=== PATIENT | female | born 1975 | race Caucasian/White ===

== ENCOUNTER 2017-02-16 08:41 | Emergency (ER) | payer BC ==
[2017-02-16 10:04] LABS: BASOPHIL# 0.2 X 10^3uL (0.0-0.1); BASOPHILS 2.3 % (0.0-2.0); EOSINOPHILS 1.3 % (0.0-6.0); EOSINOPHILS# 0.1 X 10^3uL (0.0-0.4); LYMPHOCYTES 10.7 % (20.0-40.0); LYMPHOCYTES# 0.9 X 10^3uL (0.8-3.8); MEAN CORPUS. HGB CONCENTRATION 34.2 g/dL (32.0-36.0); MEAN CORPUSCULAR HEMOGLOBIN 30.7 pg (29.0-35.0); MEAN PLATELET VOLUME 7.7 fL (7.4-10.4); MONOCYTES 9.3 % (2.0-10.0); MONOCYTES# 0.7 X 10^3uL (0.2-1.0); NEUTROPHILS# 6.1 X 10^3uL (2.6-6.7); PLATELET COUNT 189 X 10^3uL (130-440); RED BLOOD COUNT 4.89 X 10^6uL (4.20-6.10); RED CELL DISTRIBUTION WIDTH 12.2 % (11.5-14.5)
[2017-02-16] MEDS ORDERED: DEXAMETHASONE 10 MG/ML VIAL ONE (10:09)
[2017-02-16 10:10] LABS: BLOOD UREA NITROGEN 7 mg/dL (7-17); CALCIUM 9.1 mg/dL (8.4-10.2); CHLORIDE 107 mmol/L (98-107); EST GLOMERULAR FILTRATION RATE > 60 mL/min; GLUCOSE 83 mg/dL (70-100); POTASSIUM 4.1 mmol/L (3.5-5.1); SODIUM 140 mmol/L (137-145)
[2017-02-16 10:21] LABS: NEUTROPHILS 76.4 % (54.0-75.0)
--- NOTE | 2017-02-16 10:48 | CT REPORT ---
HISTORY: Difficulty swallowing, congestion. COMPARISON: None TECHNIQUE: This examination was performed using automated exposure control, adjustment of mA or kV according to patient size, and/or use of iterative reconstruction technique. Contrast enhanced axial CT images of the neck were acquired following the intravenous administration of IV contrast. Coronal and sagittal reconstructions were performed. 100 cc Isovue-300 FINDINGS: Aerodigestive tract: Subtle submucosal edema involving the bilateral aryepiglottic folds, more conspi cuous on the left with associated mucosal hyperenhancement. The upper aerodigestive tract is not sign ificantly narrowed. Major salivary glands: The parotid glands and submandibular glands are unremarkable. Thyroid gland: The thyroid gland is normal in CT appearance. Lymph nodes: No cervical chain adenopathy. Orbits: The visualized orbits and globes are unremarkable. Visualized brain and intracranial contents: The visualized intracranial contents are unremarkable. Paranasal sinuses: Minor mucosal thickening along the floor of the right maxillary sinus. Visualized osseous structures: No aggressive bone lesion. Upper chest and vascular: The visualized lung apices, upper mediastinum and vascular structures in th e neck are unremarkable. IMPRESSION: 1. Findings suggesting supraglottic laryngitis involving the aryepiglottic folds. 2. No evidence of abscess. 3. Minor mucosal thickening in the right maxillary sinus. Final Electronic Signature: This report was electronically signed by Andrea Haynes MD on 02/16/2017 10:46 AM. hayley /
--- NOTE | 2017-02-16 11:06 | ER PHYSICIAN DOCUMENTATION ---
Physician Documentation [facility] Name:Michelle Sheets Age:41 yrs Sex:Female :1975 Arrival Date:02/16/2017 Time:08:41 Bed2 Private MD: Pablo Hutchinson Disposition: 02/16/17 10:58 Discharged to Home/Self Care. Impression: Pharyngitis - Tonsillitis. - Condition is Good. - Discharge Instructions: PHARYNGITIS, Report Pending. - Medical Reconciliation form form. - Follow up: Private Physician; When: As needed; Reason: Worsening of condition. - Problem is new. - Symptoms have improved. HPI: 02/16 10:59 This 41 yrs old Female presents to ER via Private Vehicle with complaints of sc Difficulty Swallowing. 10:59 The patient presents with sore throat, dysphagia. The patient describes throat pain as sc raw. Onset: The symptom(s)/episode began/occurred 3 day(s) ago. Severity of symptoms: At their worst the symptoms were moderate. Associated signs and symptoms: The patient has no apparent associated signs or symptoms. Historical: - Allergies: pantoprazole; - Home Meds: 1. HTN MED 2. THYROID MED - PMHx: Hypertension; THYROID PROBLEM; GASTROPARESIS; HIATAL HERNIA; - PSHx: BYPASS; Tonsillectomy; - Tetanus: < 10 years. - Ebola Screening: : Patient negative for fever greater than or equal to 101.5 degrees Fahrenheit, and additional compatible Ebola Virus Disease symptoms. - Immunization history: Flu Vaccine < 1 year. - Social history: Smoking status: Patient uses tobacco products, current every day smoker. ROS: 11:00 Constitutional: Negative for fever, chills, and weight loss. sc Eyes: Negative for injury, pain, redness, and discharge. Neck: Negative for injury, pain, and swelling. Cardiovascular: Negative for chest pain, palpitations, and edema. Skin: Negative for injury, rash, and discoloration. 11:00 Neuro: Negative for headache, weakness, numbness, tingling, and seizure. sc 11:00 ENT: Positive for sore throat. Exam: Constitutional: This is a well developed, well nourished patient who is awake, alert, and in no acute distress. Head/Face: Normocephalic, atraumatic. Eyes: Pupils equal round and reactive to light, extra-ocular motions intact. Lids and lashes normal. Conjunctiva and sclera are non-icteric and not injected. Cornea within normal limits. Periorbital areas with no swelling, redness, or edema. 11:01 Cardiovascular: Regular rate and rhythm with a normal S1 and S2. No gallops, murmurs, sc or rubs. Normal PMI, no JVD. No pulse deficits. 11:01 ENT: Mouth: Oral mucosa: moist, Posterior pharynx: swelling, that is mild, erythema. 11:01 Neck: ROM/movement: no acute changes, Lymph nodes: lymphadenopathy is appreciated. 11:01 Respiratory: the patient does not display signs of respiratory distress, Respirations: normal, Breath sounds: are normal. Vital Signs: 08:46 BP 127 / 96; Pulse 97; Resp 20; Temp 98.6(O); Pulse Ox 89% on R/A; Weight 77.11 kg (R); arc Height 5 ft. 6 in. (167.64 cm) (R); Pain 7/10; 08:46 Body Mass Index 27.44 (77.11 kg, 167.64 cm) arc MDM: 09:03 Patient medically screened. de 11:01 Differential diagnosis: laryngitis, peritonsillar abscess. Data reviewed: vital signs, de nurses notes, lab test result(s), radiologic studies, and as a result, I will discharge patient, administer antibiotics administer steroids. Counseling: I had a detailed discussion with the patient and/or guardian regarding: the historical points, exam findings, and any diagnostic results supporting the discharge/admit diagnosis, lab results, radiology results, the need for outpatient follow up, to return to the emergency department if symptoms worsen or persist or if there are any questions or concerns that arise at home. 02/16 09:21 Order name: RAPID STREP SCRN CUL IF NEG; Complete Time: 10:56 EDMS 02/16 10:56 Interpretation: Normal. de 02/16 10:13 Order name: BASIC METABOLIC PANEL; Complete Time: 10:27 EDMS 02/16 10:27 Interpretation: Normal. de 02/16 10:22 Order name: CBC AUTO DIF, MDIF/RMOR IF IND; Complete Time: 10:27 EDAZ 02/16 10:27 Interpretation: Normal. de 02/17 06:45 Order name: THROAT FOR BETA STREP [facility] 02/16 10:50 Order name: CAT SCAN;NECK SOFT [id number]/[id number]; Complete Time: 10:56 [facility] 02/16 10:56 Interpretation: Normal. de 02/16 09:45 Order name: Iv Saline Lock; Complete Time: 09:54 de Dispensed Medications: 10:01 Drug: Decadron 10 mg IVP - Dexamethasone 10 mg; Route: IVP; Site: right antecubital; 11:05 Follow up: Response: No adverse reaction rh Signatures: Pablo Schaffer MD MD sc Hofsess, Rachel
--- NOTE | 2017-02-16 11:06 | ER NURSING DOCUMENTATION ---
Nurse's Notes [facility] Name:Michelle Sheets Age:41 yrs Sex:Female :1975 Arrival Date:02/16/2017 Time:08:41 Bed2 Private MD: Diagnosis:Pharyngitis - Tonsillitis Presentation: 02/16 08:50 Acuity: OZZY 3 rh 08:59 Presenting complaint: Patient states: Pt has bad seasonal allergies and has had cough rh and sore throat x3 days. Pt states she feels like she has small knot in her throat and was coughing up some blood this am. Airway intact. Transition of care: Home. 08:59 Method Of Arrival: Private Vehicle rh Triage Assessment: 09:02 General: Appears in no apparent distress, Behavior is cooperative. Pain: Complains of rh pain in THROAT. EENT: Throat is reddened. EENT: Reports nasal congestion Sinus drainage. EENT: Reports blood when she coughed . Neuro: Level of Consciousness is awake, alert, obeys commands. Cardiovascular: Capillary refill < 3 seconds. Respiratory: Reports cough that is. GI: Denies nausea. Derm: Skin is intact, is healthy with good turgor, Skin is pink, warm & dry. Historical: - Allergies: pantoprazole; - Home Meds: 1. HTN MED 2. THYROID MED - PMHx: Hypertension; THYROID PROBLEM; GASTROPARESIS; HIATAL HERNIA; - PSHx: BYPASS; Tonsillectomy; - Tetanus: < 10 years. - Ebola Screening: : Patient negative for fever greater than or equal to 101.5 degrees Fahrenheit, and additional compatible Ebola Virus Disease symptoms. - Immunization history: Flu Vaccine < 1 year. - Social history: Smoking status: Patient uses tobacco products, current every day smoker. Screenin:04 Infectious Disease Risk None. Abuse screen: Denies threats or abuse. Denies injuries rh from another. Nutritional screening: No deficits noted. Assessment: 09:04 See Triage Assessment done by same RN. rh Vital Signs: 08:46 BP 127 / 96; Pulse 97; Resp 20; Temp 98.6(O); Pulse Ox 89% on R/A; Weight 77.11 kg (R); arc Height 5 ft. 6 in. (167.64 cm) (R); Pain 7/10; 08:46 Body Mass Index 27.44 (77.11 kg, 167.64 cm) [facility] ED Course: 08:45 Patient arrived in ED. [facility] 08:50 Deepti Velazco is Primary Nurse. 08:50 Triage completed. 08:52 Notified ED Physician of patient's arrival and chief complaint. Dr. Schaffer notified. 09:03 Pablo Schaffer MD is Attending Physician. ia 09:04 Valuables Remains with patient Patient has correct armband on for positive rh identification. Bed in low position. Call light in reach. Side rails up X 1. 09:49 Inserted peripheral IV: 20 gauge in left antecubital area and blood collected. rh 10:[address] pm1 10:[address] back [address] pm1 Administered Medications: 10:01 Drug: Decadron 10 mg IVP - Dexamethasone 10 mg; Route: IVP; Site: right antecubital; 11:05 Follow up: Response: No adverse reaction rh Outcome: 10:58 Discharge ordered by . ia 11:05 Discharged to home ambulatory. 11:05 Condition: improved 11:05 Discharge Assessment: Patient awake, alert and oriented x 3. No cognitive and/or functional deficits noted. Patient verbalized understanding of disposition instructions. 11:05 Discharge instructions given to patient, Instructed on discharge instructions, follow up and referral plans. Demonstrated understanding of instructions. 11:05 IV D/Ricky 11:05 Patient left the ED. 02/17 17:15 Discharge F/U Call: Spoke with: other: Name: Pt is feeling much better. Pt has no st questions or concerns. Signatures: Safia Casanova RN RN st Pablo Schaffer MD MD sc McBride, Philisha pm1 Taylor Schaffer, Reg Reg [facility] Deepti Velazco
== END 2017-02-16 11:06 | disposition home or self-care (01) ==
LOC: ER 08:41
DX: J03.90 Acute tonsillitis, unspecified (principal); J02.9 Acute pharyngitis, unspecified; R13.10 Dysphagia, unspecified; F17.210 Nicotine dependence, cigarettes, uncomplicated; I10 Essential (primary) hypertension; Z79.899 Other long term (current) drug therapy
CPT/HCPCS: 70491; 80048; 85025; 86403; 87081; 96374; 99284; J1100